=== PATIENT | female | born 1995 | race Caucasian/White ===

== ENCOUNTER 2017-11-09 15:20 | Outpatient (CLI) | payer MEDICAID ==
[~2017-11-09] VITALS: Ht 165.1 cm; Wt 114.9 kg
[2017-11-09 15:44] LABS: URINE BLOOD (Dip) POC Negative (NEGATIVE)
[2017-11-09] MEDS ORDERED: PNV11TAB PO (15:55)
[2017-11-09 15:56] VITALS: BP 129/67; PULSE 89; RESP 18; Ht 165.1 cm; Wt 114.9 kg
[2017-11-09 16:16] LABS: BASOPHILS % 0.2 % (0.0-2.0); EOSINOPHILS # 0.1 10^3/ul (0.0-0.5); HEMATOCRIT 37.1 % (37.0-47.0); HEMOGLOBIN 12.1 g/dl (12.0-16.0); LYMPHOCYTES # 1.9 10^3/ul (0.8-2.9); MEAN CORPUSCULAR HEMOGLOBIN 26.6 pg (29.0-33.0); MEAN CORPUSCULAR HGB CONC 32.6 g/dl (32.0-37.0); MEAN CORPUSCULAR VOLUME 81.5 fl (82.0-101.0); MEAN PLATELET VOLUME 11.8 fl (7.4-10.4); MONOCYTE # 1.1 10^3/ul (0.3-0.9); MONOCYTES % 8.4 % (0.0-11.0); NEUTROPHIL # 10.2 10^3/ul (1.6-7.5); NEUTROPHILS % 75.7 % (39.0-77.0); PLATELET COUNT 224 10^3/UL (140-415); RED BLOOD COUNT 4.55 10^6/ul (4.20-5.40); RED CELL DISTRIBUTION WIDTH 14.4 % (11.5-14.5); WHITE BLOOD COUNT 13.4 10^3/ul (4.8-10.8)
[2017-11-09 16:32] LABS: INR 0.93; PROTIME 12.6 Sec (11.9-14.9)
[2017-11-09 16:33] LABS: PARTIAL THROMBOPLASTIN TIME 26.5 Sec (25.0-35.0)
[2017-11-09 16:34] LABS: ALBUMIN 3.6 g/dl (3.3-4.9); ALBUMIN/GLOBULIN RATIO 1.12; BILIRUBIN,INDIRECT 0.1 mg/dl (0-1.1); BILIRUBIN,TOTAL 0.1 mg/dl (0.2-1.3); CALCIUM 9.1 mg/dl (8.4-10.2); CREATININE 0.54 mg/dl (0.44-1.00); POTASSIUM 3.4 mmol/L (3.5-5.1); TOTAL PROTEIN 6.8 g/dl (6.1-8.1); URIC ACID 4.9 mg/dl (3.1-7.9)
[2017-11-09 16:42] LABS: ADD UMIC YES; UR AMORPHOUS CRYSTAL FEW /HPF (NONE SEEN); UR ASCORBIC ACID NEGATIVE (NEGATIVE); UR BACTERIA FEW /HPF (NONE SEEN); UR BILIRUBIN (Dip) NEGATIVE (NEGATIVE); UR BLOOD (Dip) NEGATIVE (NEGATIVE); UR CLARITY CLOUDY (CLEAR); UR COLOR YELLOW (YELLOW); UR GLUCOSE (Dip) NEGATIVE (NEGATIVE); UR KETONES (Dip) NEGATIVE (NEGATIVE); UR LEUKOCYTE ESTERASE (Dip) TRACE Leu/ul (NEGATIVE); UR NITRITE (Dip) NEGATIVE (NEGATIVE); UR RBC 9 /HPF (0-5); UR SPECIFIC GRAVITY (Dip) 1.017 (1.003-1.030); UR SQUAMOUS EPITHELIAL CELL MODERATE /HPF (FEW); UR TOTAL PROTEIN (Dip) NEGATIVE (NEGATIVE); UR UROBILINOGEN (Dip) NEGATIVE (NEGATIVE)
--- NOTE | 2017-11-09 17:26 | RADRPT ---
PROCEDURE: US OB biophysical profile. CLINICAL INDICATION: decreased movements TECHNIQUE: Multiple sonographic images of the pelvis were obtained. The images were reviewed on a PACS workstation. COMPARISON: No prior studies are available for comparison. FINDINGS: There is a single viable intrauterine gestation. Cardiac activity is present with 123 beats per min desean. There is a vertex presentation. The placenta is posterior. There is no evidence of placental abruption. There is a normal amount of amniotic fluid with an KINA = 15.9 cm. Biophysical profile: movement 2/2 tone 2/2. breathing 2/2 KINA 2/2 Total 06/19 RPTAT: AA . IMPRESSION: Normal biophysical profile. . .Ismael Christie MD, MD Date Time Electronically viewed and signed by .Ismael Christie MD, MD on 11/09/2017 17:26 .S/
--- NOTE | 2017-11-09 17:36 | PN ---
Triage Information Date/Time Reason for visit: R/o Preeclampsia Weeks of Gestation 36+ /Para 1/0 Diabetes: none Hypertention: none Objective Vital Signs Date Time Temp Pulse Resp B/P Pulse Ox O2 Delivery O2 Flow Rate FiO2 11/09/17 15:56 98.2 89 18 129/67 Heart Rate: 140's Contractions: None Results/Medications Result Diagram: 11/09/17 1550 11/09/17 1550 Results 24 hrs Laboratory Tests Test 11/09/17 15:30 11/09/17 15:46 11/09/17 15:50 Urine Color YELLOW Urine Clarity CLOUDY A Urine pH 6.0 Urine Specific [place] 1.017 Urine Ketones NEGATIVE Urine Nitrite NEGATIVE Urine Bilirubin NEGATIVE Urine Urobilinogen NEGATIVE Urine Leukocyte Esterase TRACE A Urine Microscopic RBC 9 H Urine Microscopic WBC 14 H Urine Squamous Epithelial Cells MODERATE Urine Calcium Oxalate Crystals MANY A Urine Amorphous Crystals FEW A Urine Bacteria FEW A Urine Hemoglobin NEGATIVE Urine Glucose NEGATIVE Urine Total Protein NEGATIVE Bedside Urine pH (LAB) 7.0 Bedside Urine Protein (LAB) Negative Bedside Urine Glucose (UA) Negative Bedside Urine Ketones (LAB) Negative Bedside Urine Blood Negative Bedside Urine Nitrite (LAB) Negative Bedside Urine Leukocyte Esterase (L Trace H White Blood Count 13.4 H Red Blood Count 4.55 Hemoglobin 12.1 Hematocrit 37.1 Mean Corpuscular Volume 81.5 L Mean Corpuscular Hemoglobin 26.6 L Mean Corpuscular Hemoglobin Concent 32.6 Red Cell Distribution Width 14.4 Platelet Count 224 Mean Platelet Volume 11.8 H Neutrophils % 75.7 Lymphocytes % 14.0 L Monocytes % 8.4 Eosinophils % 1.0 Basophils % 0.2 Nucleated Red Blood Cells % 0.0 Neutrophils # 10.2 H Lymphocytes # 1.9 Monocytes # 1.1 H Eosinophils # 0.1 Basophils # 0.0 Nucleated Red Blood Cells # 0.0 Prothrombin Time 12.6 Prothrombin Time Ratio 1.0 INR International Normalized Ratio 0.93 Activated Partial Thromboplast Time 26.5 Fibrinogen 623.0 H Sodium Level 137 Potassium Level 3.4 L Chloride Level 106 Carbon Dioxide Level 21 Anion Gap 13 Blood Urea Nitrogen 6 L Creatinine 0.54 Glucose Level 104 Uric Acid 4.9 Calcium Level 9.1 Total Bilirubin 0.1 L Direct Bilirubin 0.00 Indirect Bilirubin 0.1 Aspartate Amino Transf (AST/SGOT) 15 Alanine Aminotransferase (ALT/SGPT) 29 Alkaline Phosphatase 195 H Total Protein 6.8 Albumin 3.6 Globulin 3.20 Albumin/Globulin Ratio 1.12 Disposition: Discharge Assessment/Plan Labs reviewed Ultrasound reviewed Discharged with precautions Patient's questions answered CARMEN CARTER M.D. Nov 09, 2017 17:36
--- NOTE | 2017-11-09 17:51 | TRIAGE ---
OB Triage Datetime Report Generated by CPN: 11/09/2017 17:50 Datetime: 11/09/2017 17:31 Stage of : OB Triage Datetime: 11/09/2017 17:15 Labor Evaluation Frequency: 0 Monitor Mode: External Pattern: Normal: <= 5 Contractions in 10 Minutes Resting Tone [place]: Relaxed Heart Rate FHR Baseline Rate: 125 Monitor Mode: External US Variability: Moderate 6-25 bpm Accelerations: 10X10 Decelerations: None Category: Category I Pain Assessment Pain Scale: 0 Pain Presence: None/Denies Pain Type: N/A Pain Goal: 3 Pain Relief Measures: Comfort Measures Datetime: 11/09/2017 15:55 Labor Evaluation Frequency: 0 Monitor Mode: External Pattern: Normal: <= 5 Contractions in 10 Minutes Resting Tone [place]: Relaxed Heart Rate FHR Baseline Rate: 135 Monitor Mode: External US Variability: Moderate 6-25 bpm Accelerations: 10X10 Decelerations: None Category: Category I Pain Assessment Pain Scale: 0 Pain Presence: None/Denies Pain Type: N/A Pain Goal: 3 Pain Relief Measures: Comfort Measures Datetime: 11/09/2017 15:39 Stage of : OB Triage Datetime: 11/09/2017 15:32 Stage of : OB Triage Assessment Type: Triage EGA: 36.1 Maternal Assessment Level of Consciousness: Fully Conscious DTR's/Clonus: DTRs 2+; No Clonus Headache: Denies Blurred Vision: No Respiratory Effort: Unlabored; Regular Rhythm; Equal Expansion Breath Sounds, Left: Clear and Equal Breath Sounds, Right: Clear and Equal Nausea/Vomiting: Denies RUQ Epigastric Pain: Denies Facial Edema: None Temperature Route: Axillary Fall Risk Assessment History of Falling: (0) No Secondary Diagnosis: (0) No Ambulatory Aid: (0) Bedrest/Nurse Assist IV Therapy: (0) No Gait: (0) Normal/Bedrest/Immobile Mental Status: (0) Oriented to Own Ability Fall Score: 0 Fall Risk Score Definition: No Risk: No action required Labor Evaluation Frequency: 0 Monitor Mode: External Pattern: Normal: <= 5 Contractions in 10 Minutes Resting Tone [place]: Relaxed Heart Rate FHR Baseline Rate: 125 Monitor Mode: External US Variability: Moderate 6-25 bpm Accelerations: 10X10 Decelerations: None Category: Category I Pain Assessment Pain Scale: 0 Pain Presence: None/Denies Pain Type: N/A Pain Goal: 3 Pain Relief Measures: Comfort Measures Datetime: 11/09/2017 15:31 Time of Arrival: 11/09/2017 15:15 Arrived By: Ambulatory Arrived From: Office Chief Complaint: REFERRED FROM DR OFFICE TO R/O PIH, NO C/O SALDAÑA AT PRESENT, DENIES LEAKING, BLEEDIN G OR LEAKING Movement: Present Contractions: Denies/Absent Rupture of Membranes: Denies Vaginal Bleeding: None Vaginal Discharge: Denies Recent Sexual Intercouse: Denies Abdominal Trauma: Not Applicable Patient Complaints: None Time Provider Notified: 11/09/2017 15:39 Provider Notified: BRENDA Initial Plan: MONITOR, PIH, BPP
== END 2017-11-09 17:40 | disposition home or self-care (01) ==
LOC: OBT 15:20 → L-D 15:20 → OBT 17:40
PROVIDERS: ATTEND Obstetrics & Gynecology
DX: O14.93 Unspecified pre-eclampsia, third trimester (principal); Z3A.36 36 weeks gestation of pregnancy
CPT/HCPCS: 76818; 80053; 81001; 81003; 84560; 85025; 85384; 85610; 85730

== ENCOUNTER 2017-12-06 21:00 | Inpatient (IN) | END 2017-12-12 18:31 | disposition home or self-care (01) | DRG 775 ==

== ENCOUNTER 2018-10-11 20:16 | Emergency (ER) | END 2018-10-11 21:26 | disposition home or self-care (01) ==

== ENCOUNTER 2019-03-21 04:48 | Emergency (ER) | payer MEDICAID ==
[~2019-03-21] VITALS: Ht 165.1 cm; Wt 115.5 kg
[~2019-03-21 04:48] MED LIST: ACET500C5 PO; CEPH-443 PO; PNV11TAB PO
[2019-03-21 04:52] VITALS: Ht 165.1 cm; Wt 115.5 kg
[2019-03-21] MEDS ORDERED: morphine 4 MG/ML VIAL IV STA (06:13)
[2019-03-21] MEDS ORDERED: ONDANSETRON 4 MG INJ IV STA (06:13)
[2019-03-21] MEDS ORDERED: BELLADONNA/PHENOBARBITAL TAB PO STA (06:13)
[2019-03-21] MEDS ORDERED: SOD CHLORIDE 0.9% 1,000 ML IV STA (06:13)
[2019-03-21] MEDS ORDERED: LIDOCAINE/MYLANTA 40 ML BTL PO STA (06:13)
--- NOTE | 2019-03-21 06:44 | ERD ---
ER Documentation Chief Complaint Chief Complaint C/O GENERALIZES AP X1 HR HPI 23-year-old female presents complaint of epigastric abdominal pain for the past couple hours. States that it came on suddenly. States that she had nachos with cheese and meat last night, but other people had them to and they are not feeling any symptoms. In addition states that she threw up 3 times since the episode started. Vomitus described as nonbilious and nonbloody. States the pain is intermittent. Pain is currently 9 out of 10. Denies chest pain, dysuria, hematuria. ROS All systems reviewed and are negative except as per history of present illness. Medications Home Meds Active Scripts Acetaminophen* (Tylophen*) 500 Mg Capsule, 1 CAP PO Q6H PRN for PAIN AND OR ELEVATED TEMP, #15 CAP Prov:RODRICK JOHNSTON MD 10/11/18 Cephalexin* (Keflex*) 500 Mg Capsule, 500 MG PO QID for 7 Days, CAP Prov:RODRICK JOHNSTON MD 10/11/18 Reported Medications [id number] ( 19) 1 Each Tablet, 1 TAB PO DAILY, TAB 11/09/17 Allergies Allergies: Coded Allergies: No Known Allergy (Unverified , 12/06/17) PMhx/Soc Medical and Surgical Hx: pt denies Medical Hx, pt denies Surgical Hx Hx Alcohol Use: No Hx Substance Use: No Hx Tobacco Use: No Smoking Status: Never smoker FmHx Family History: No diabetes, No coronary disease, No other Physical Exam Vitals Vital Signs Date Temp Pulse Resp B/P (MAP) Pulse Ox O2 O2 Flow FiO2 Time Delivery Rate 03/21/19 98.1 92 18 111/68 98 04:52 (82) Physical Exam Const: No acute distress Head: Atraumatic Eyes: Normal Conjunctiva ENT: Normal External Ears, Nose and Mouth. Neck: Full range of motion. No meningismus. Resp: Clear to auscultation bilaterally Cardio: Regular rate and rhythm, no murmurs Abd: Upper right quadrant pain with positive Pabon's. Epigastric tenderness to palpation. Negative McBurney's tenderness. Skin: No petechiae or rashes Back: No midline or flank tenderness Ext: No cyanosis, or edema Neur: Awake and alert Psych: Normal Mood and Affect Result Diagram: 03/21/19 0640 03/21/19 0640 Results 24 hrs Laboratory Tests Test 03/21/19 06:31 03/21/19 06:34 03/21/19 06:40 Urine Color YELLOW Urine Clarity SLIGHTLY CLOUDY Urine pH 6.0 Urine Specific [place] 1.039 Urine Ketones TRACE mg/dL Urine Nitrite NEGATIVE mg/dL Urine Bilirubin NEGATIVE mg/dL Urine Urobilinogen 2+ mg/dL Urine Leukocyte Esterase TRACE [place]/ul Urine Microscopic RBC 1 /HPF Urine Microscopic WBC 11 /HPF Urine Squamous Epithelial Cells FEW /HPF Urine Amorphous Crystals FEW /HPF Urine Bacteria FEW /HPF Urine Mucus MODERATE /HPF Urine Hemoglobin NEGATIVE mg/dL Urine Glucose NEGATIVE mg/dL Urine Total Protein 1+ mg/dl POC Beta HCG, Qualitative NEGATIVE White Blood Count 12.6 10^3/ul Red Blood Count 4.98 10^6/ul Hemoglobin 13.0 g/dl Hematocrit 40.7 % Mean Corpuscular Volume 81.7 fl Mean Corpuscular Hemoglobin 26.1 pg Mean Corpuscular 31.9 g/dl Hemoglobin Concent Red Cell Distribution Width 14.3 % Platelet Count 255 10^3/UL Mean Platelet Volume 11.2 fl Immature Granulocytes % 0.500 % Neutrophils % 68.9 % Lymphocytes % 19.9 % Monocytes % 7.3 % Eosinophils % 2.9 % Basophils % 0.5 % Nucleated Red Blood Cells % 0.0 /100WBC Immature Granulocytes # 0.060 10^3/ul Neutrophils # 8.7 10^3/ul Lymphocytes # 2.5 10^3/ul Monocytes # 0.9 10^3/ul Eosinophils # 0.4 10^3/ul Basophils # 0.1 10^3/ul Nucleated Red Blood Cells # 0.0 10^3/ul Sodium Level 146 mmol/L Potassium Level 3.9 mmol/L Chloride Level 110 mmol/L Carbon Dioxide Level 26 mmol/L Anion Gap 10 Blood Urea Nitrogen 13 mg/dl Creatinine 0.56 mg/dl Est Glomerular Filtrat > 60 mL/min Rate mL/min Glucose Level 111 mg/dl Calcium Level 9.7 mg/dl Total Bilirubin 0.3 mg/dl Direct Bilirubin 0.00 mg/dl Indirect Bilirubin 0.3 mg/dl Aspartate Amino 105 IU/L Transf (AST/SGOT) Alanine 77 IU/L Aminotransferase (ALT/SGPT) Alkaline Phosphatase 163 IU/L Total Protein 7.9 g/dl Albumin 4.4 g/dl Globulin 3.50 g/dl Albumin/Globulin Ratio 1.25 Lipase 61 U/L Current Medications Medications Dose Sig/Shanel Start Time Status Last (Trade) Ordered Route PRN Stop Time Admin Dose Reason Admin Morphine 4 mg ONCE STAT 03/21/19 DC Sulfate IV 06:13 (morphine) 03/21/19 06:18 Ondansetron 4 mg ONCE STAT 03/21/19 DC 03/21/19 HCl (Zofran IV 06:13 06:54 Inj) 03/21/19 06:18 40 ml ONCE STAT 03/21/19 DC 03/21/19 Miscellaneous PO 06:13 06:54 Medication 03/21/19 06:18 (Gi Cocktail (2)) Belladonna/ 2 tab ONCE STAT 03/21/19 DC 03/21/19 Phenobarbital PO 06:13 06:57 () 03/21/19 06:18 Sodium 1,000 ml @ Q1H STAT 03/21/19 DC 03/21/19 Chloride 1,000 mls/hr IV 06:13 06:54 03/21/19 07:12 Procedures/MDM DIAGNOSTIC IMAGING REPORT Patient: CHELO MARQUEZ : 1995 Age: 23 Sex: F MR #: [id number] DOS: 03/21/19612 Ordering MD: KRISTEN CANELA Location: [facility] Room/Bed: PROCEDURE: ULTRASOUND LIMITED ABDOMEN CLINICAL INDICATION: 23-year-old female with abdominal pain. TECHNIQUE: Multiple sonographic of the right upper quadrant of the abdomen were obtained. The images were reviewed on a PACS workstation. COMPARISON: None. FINDINGS: The pancreas is partially visualized and is otherwise without abnormal echogenicity. The liver displays diffuse increased echogenicity. The liver measures 17.1 cm in length. No evidence of intrahepatic biliary ductal dilatation is seen. The portal and hepatic veins are unremarkable. The gallbladder contains multiple non mobile shadowing stones. The gallbladder wall thickness is within normal limits measuring 2.4 mm. No pericholecystic fluid is seen. The common bile duct measures 4.5 mm and is not dilated. The right kidney displays normal echogenicity. The right kidney measures 11.5 x 4.7 cm. No caliectasis or hydronephrosis is seen. No free fluid is seen. IMPRESSION: 1. Hepatic steatosis. 2. Cholelithiasis. .Baldemar Mcfarlane MD, Date Time Electronically viewed and signed by .Baldemar Mcfarlane MD, MD on 03/21/2019 07:45 .M/ CC: ROLAKRISTEN [phone] MDM: Ultrasound showed cholelithiasis. I have low suspicion for cholecystitis, biliary duct obstruction, ascending cholangitis, AAA, or any other emergent condition. Patient advised that this is a chronic condition which needs to be managed eventually surgery. Patient given pain medication and told to follow-up with primary. Patient discharged with strict ER precautions. Patient advised to follow up with PMD. All questions answered at discharge. Departure Diagnosis: Primary Impression: Biliary colic Condition: Stable KRISTEN CANELA March 21, 2019 06:44
[2019-03-21] MEDS ORDERED: KETOROLAC 30 MG INJ IV STA (07:50)
[2019-03-21] MEDS ORDERED: IBUP-1542 PO (07:53)
[2019-03-21] MEDS ORDERED: HYDR-4011 PO (07:53)
[2019-03-21] MEDS ORDERED: ONDA8TAB14 PO (07:55)
[2019-03-21 08:05] VITALS: BP 124/72; PULSE 69; RESP 16
== END 2019-03-21 08:25 | disposition home or self-care (01) ==
LOC: FTE 04:48
DX: K80.50 Calculus of bile duct without cholangitis or cholecystitis without obstruction (principal)
CPT/HCPCS: 36415; 76705; 80053; 81001; 81025; 83690; 85025; 96374; 96375; J1885; J2405; J7030; Z7502; Z7610